=== PATIENT | male | born 1995 | race Caucasian/White ===

== ENCOUNTER 2017-01-16 16:55 | Emergency (ER) | payer OTHER ==
[~2017-01-16] VITALS: Ht 171.4 cm; Wt 69.0 kg
[~2017-01-16 16:55] MED LIST: CIPR-280 PO; PHEN95TA25 PO
[2017-01-16 16:57] VITALS: Ht 171.4 cm; Wt 69.0 kg
--- OUTSIDE RECORDS SUMMARY | 2017-01-16 17:00 | XMS REPORT | Referral Summary ---
Author Author [facility] Organization [facility] Address Unknown Phone Unavailable Care Team Providers Care Teaching Manager Name Role Phone NO PCP, PT STATES Primary Care Physician Unavailable Encounter VC Date(s): 02/18/16 - 02/18/16 [facility] [address] [place] [address] DANAE Schuster [id number] Discharge Disposition: 01-Home or Self Care Attending Physician: Mati Reardon JR, MD Admitting Physician: Mati Reardon JR, MD Vital Signs No data available for this section Problem List No data available for this section Allergies, Adverse Reactions, Alerts No Known Medication Allergies Medications Azo-Standard mg, Oral, TIDPC, 0 Refill(s) Start Date: 01/31/16 Status: Ordered Cipro Oral, q12hr, 0 Refill(s) Start Date: 01/31/16 Status: Ordered Results No data available for this section Immunizations No data available for this section Procedures No data available for this section Social History Social History Type Response Smoking Status Current every day smoker Assessment and Plan Extracted from: Title: Check Author: Dane Das RN Date: 02/18/16 Patient came in this morning not sure if he needed to as he saw Jonna Reardon yesterday and had his catheter removed. He states that he is able to urinate properly, is able to completely empty and is having no problems. I advised him to follow up in 2 weeks or sooner if needed. Drink plenty of water and stay avoid caffeine if possible. Patient verbalized understanding.
--- OUTSIDE RECORDS SUMMARY | 2017-01-16 17:00 | XMS REPORT | Referral Summary ---
Author Author [facility] [place] Organization [facility] [place] Address Unknown Phone Unavailable Care Team Providers Care Event Technician Name Role Phone NO PCP, PT STATES Primary Care Physician Unavailable Encounter VC Date(s): 02/16/16 - 02/16/16 [facility] [address] DANA[place] Schuster [id number] Discharge Diagnosis: History of urinary retention Discharge Diagnosis: Urethral stricture Discharge Disposition: 01-Home or Self Care Attending Physician: Jonna Reardon APRN Admitting Physician: Jonna Reardon APRN Vital Signs Most recent to 1 oldest [Reference Range]: Peripheral Pulse 79 bpm Rate [60-100 bpm] (02/16/16 3:49 PM) Blood Pressure 126/68 mmHg [90-140/60-90 mmHg] (02/16/16 3:49 PM) SpO2 97 % (02/16/16 3:49 PM) Problem List No data available for this [...] Current every day smoker Assessment and Plan No data available for this section
--- OUTSIDE RECORDS SUMMARY | 2017-01-16 17:00 | XMS REPORT | Referral Summary ---
Author Author [facility] Organization [facility] Address Unknown Phone Unavailable Care Team Providers Care Resource Protection Specialist Name Role Phone NO PCP, PT STATES Primary Care Physician Unavailable Encounter Date(s): 01/31/16 - 01/31/16 [facility] [address] [place] [address] DANAE Schuster [id number] Discharge Diagnosis: H/O urethral stricture Discharge Diagnosis: Urethral stricture Discharge Diagnosis: Acute urinary retention Discharge Disposition: 01-Home or Self Care Attending Physician: Mati Reardon JR, MD Admitting Physician: Mati Reardon JR, MD Vital Signs Most recent to 1 oldest [Reference Range]: Peripheral Pulse 70 bpm Rate [60-100 bpm] (01/31/16 3:56 PM) Blood Pressure 140/82 mmHg [90-140/60-90 mmHg] (01/31/16 3:56 PM) Problem List No data available for [...] smoker Assessment and Plan Extracted from: Title: Ambulatory Patient Education Author: Mati Reardon JR, MD Date : 01/31/16 Follow Up With: Where: When: PT STATES NO PCP Within 3 to 5 days Comments: Follow Up With: Where: When: Mati Reardon [address] [place] [address] Drive; [facility] DANAE Servin [id number] Business (0) In 1 week 02/07/2016 Comments: Extracted from: Title: Office Visit Note Author: Mati Reardon JR, MD Date: 01/31/16 Assessment/Plan 1.Urethral stricture Patient scheduled for cystoscopy and filiform and follower dilatation next Sunday. He is contributing very catheter for at least 4 days after the dilatations done. Acute urinary retention Patient was seen recently because of acute urinary retention.. An extended to getting a catheter in place Ordered: Office Visit Level 3 Est 38923 H/O urethral stricture . Urethral stricture secondaryto catheterization whenhe was in the hospitalwhere he had a catheter for 2 weeksand developed urethral stricture. Ordered: Office Visit Level 3 Est 20657
--- OUTSIDE RECORDS SUMMARY | 2017-01-16 17:00 | XMS REPORT | Continuity of Care Document ---
Author Author [facility] Organization [facility] Address Unknown Phone Unavailable Allergies Active Description Code Type Severity Reaction Onset Reported/Identified Relationship to Patient Clinical Status Yes No Known Medication Allergies NKMA N/A N/A 01/31/2016 Medications Problems Procedures Results Encounters ACCT No. Visit Date/Time Discharge Status Pt. Type Provider Facility Loc./Unit Complaint [id number] 02/18/2016 08:51:00 2015 23:59:00 DIS Outpatient Mati Reardon [facility] New Uro cath removal [id number] 02/16/2016 15:46:00 2015 23:59:00 DIS Outpatient Jonna Reardon Via [facility] New FM Rae causing pain
--- OUTSIDE RECORDS SUMMARY | 2017-01-16 17:00 | XMS REPORT ---
Author Author Lucrecia Guerrero [facility] [employer] Address Unknown Phone Unavailable Care Team Providers Care Shell Trim Operator Name Role Phone Lucrecia Guerrero CP Unavailable Allergies, Adverse Reactions, Alerts Substance Reaction Event Type N.K.D.A. Info Not Available Non Drug Allergy Problems Problem Type Condition Code Onset Dates Condition Status Problem Alcohol abuse, daily use F10.10 Active Assessment Acute suppurative otitis media of left ear with spontaneous rupture of tympanic membrane, recurrence not specified H66.012 Active Problem Anxiety F41.9 Active Assessment Alcohol abuse, daily use F10.10 Active Assessment Pharyngitis, unspecified etiology J02.9 Active Assessment Anxiety F41.9 Active Medications Medication Code System Code Instructions Start Date End Date Status Dosage BusPIRone HCl [facility] [address]-89 7.5 MG Orally Twice a day Sep 14, 2016 1 tablet Amoxicillin [facility] [address]-29 500 MG Orally every 8 hrs Sep 14, 2016 Sep 24, 2016 1 capsule Procedures Procedure Coding System Code Date OFFICE VISIT, EST-LOW COMPLEXITY (15 MIN.) CPT-4 87037 Sep 14, 2016 Vital Signs Date/Time: Sep 14, 2016 Temperature 99.1 F Height 68.25 in Weight 148.6 lbs Blood Pressure Diastolic 62 mm Hg Blood Pressure Systolic 108 mm Hg Cardiac Monitoring Heart Rate 98 /min BMI 22.43 Index Oximetry 96 % Results No Known Results Summary Purpose e[employer] Submission
[2017-01-16] MEDS ORDERED: No current meds (17:09)
--- NOTE | 2017-01-16 17:19 | ERPDOC ---
Departure Disposition Decision Date: Jan 16, 2017 Disposition Decision Time: 18:04 Disposition: 02 TO [facility] Impression Impression Impression: Primary Impression: Urinary retention Additional Impression: History of urethral stricture Severity: Moderate Condition: Stable Seen By: Mid-level only Problems/Meds/Labs Reviewed?: Yes Medications reviewed and manag: Yes Follow up care ordered?: Yes Mental Status: Alert, Oriented HPI - Male General Chief Complaint: Male Urogenital Problems Stated Complaint: DIFF URINATING Time Seen by Provider: 17:00 Source: patient Exam Limitations: no limitations HPI - Male Initial Comments He has a history of urinary retention and urethral strictures. He has had to have Dr Reardon dilate his urethra about a year ago. He presents to ER for evaluation of difficulty passing urine. Has just been dribbling mostly the last few days. Bladder scan upon arrival shows over 800ml of urine in the bladder. He is able to void approximately 200ml of pale yellow urine into urinal on his own. Denies any fever or chills. Occurred At: home Onset: Gradual Duration: 1 week Severity/Quality: fullness Location: suprapubic Radiation: none Associated Symptoms: DENIES: abdominal pain, diaphoresis, dysuria, fever/chills , loss of bladder control, lower back pain, lumps, mass, nausea/vomiting, nocturia, polyuria, swelling, syncope, urinary frequency Hx of Similar Symptoms: Yes Allergies: Coded Allergies: No Known Allergies (Unverified , 01/25/16) Past History Past Medical History Male: other (Urinary retention, urethral strictures) Psychological: depression, drug abuse, suicide attempt Surgical History Denies Surgeries Family History Family PMH: FOUND: other Vaccines Hx Influenza Vaccination: No Hx Pneumococcal Vaccination: No Social History Does patient use chewing tobac: No Sexuality: female partner Review of Systems Constitutional Constitutional: DENIES: chills, dizziness, fatigue, fever, weakness Cardiovascular Cardiac: DENIES: chest pain, orthopnea Rhythm/Rate: DENIES: irregular beat, palpitations Pulmonary Respiratory: DENIES: cough, dyspnea, sputum, tachypnea GI Upper Abdomen: DENIES: nausea, pain, vomiting Lower Abdomen: DENIES: constipation, diarrhea, pain General: DENIES: burning, dysuria, frequency, urgency Male: retention Integumentary Skin: DENIES: rash Neurological General: DENIES: headache, numbness, tingling, weakness Physical Exam General General Nourishment: well nourished, well developed, appears stated age, no acute distress, adult General Body Habitus: well groomed Vitals and Pain First Documented Vital Signs Date Time Temp Pulse Resp B/P Pulse Ox O2 Delivery O2 Flow Rate FiO2 01/16/17 16:57 97.6 90 18 129/80 98 Room Air Weight: Kilograms: 69.000 Height (feet): 5 Height (inches): 7.50 Triage Pain Scale: RN VS reviewed by Provider: Yes Normal Exams: Neck: Full range of motion, without adenopathy, JVD, bruits or thyromegaly Chest/Resp: Clear all valladares, with good airflow, and symmetry bilaterally CV: Regular rate and rhythm, without murmur or gallop, Pulses 2+ all extremities, capillary refill, <2 seconds all ext., no pedal edema noted Abdomen: Bowel sounds positive, non-distended, no hepatosplenomegaly, masses or bruits noted Lymphatic: No lymphadenopathy, or lymphedema noted Neurologic: Patient is alert, and oriented Psychiatric: Patient exhibits, appropriate attention, emotion and affect Abdomen Palpation: FOUND: tender (Mild TTP in lower abdomen over region of the bladder) Differential Diagnoses Considering: Urinary Retention, UTI Progress Results/Orders Orders Procedure Category Date Status Time Ua, Dip Wreflex LAB 01/16/17 Logged Microsc & Independent Driver 17:45 Progress Progress 1746-Nursing unable to insert harper catheter. Attempted with 16 F harper catheter and then 14 F Coude without success. Did speak with Dr Ramsey. 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 Will consult with urologist in [place]. 1754- Spoke with Dr Hipolito Bertrand. He will accept patient for evaluation at [facility]. [facility] office with transport to ER. ER staff will notify Dr Bertrand of arrival to ER. REBECCA MOTTA APRN Jan 16, 2017 17:19
--- OUTSIDE RECORDS SUMMARY | 2017-01-16 17:25 | XMS REPORT | Continuity of Care Document ---
Author Author [facility] Organization [facility] Address Unknown Phone Unavailable Allergies Active Description Code Type Severity Reaction Onset Reported/Identified Relationship to Patient Clinical Status Yes No Known Medication Allergies NKMA N/A N/A 01/31/2016 Medications Problems Procedures Results Encounters ACCT No. Visit Date/Time Discharge Status Pt. Type Provider Facility Loc./Unit Complaint [id number] 02/18/2016 08:51:00 2015 23:59:00 DIS Outpatient Mati Reardon [facility] New Uro cath removal [id number] 02/16/2016 15:46:00 2015 23:59:00 DIS Outpatient Jonna Reardon [facility] New FM Rae causing pain
--- NOTE | 2017-01-16 18:20 | NUR ---
TRANSFER REPORT TO GANESH MAYNARD AT [facility]
[2017-01-16 18:23] VITALS: BP 129/80; PULSE 90; RESP 18; TEMP 97.6; O2SAT 98
== END 2017-01-16 18:23 | disposition short-term general hospital (02) ==
LOC: ED 16:55
DX: R33.9 Retention of urine, unspecified (principal); Z87.448 Personal history of other diseases of urinary system